=== PATIENT | male | born 1995 | race African-American/Black ===

== ENCOUNTER 2019-09-02 14:59 | Emergency (ER) | payer MEDICAID ==
[~2019-09-02] VITALS: Ht 175.3 cm; Wt 99.8 kg
[~2019-09-02 14:59] MED LIST: CIPRO PO
[2019-09-02 15:02] VITALS: BP 141/86
--- NOTE | 2019-09-02 15:06 | NUR ---
WAIT AT LOBBY
[2019-09-02 15:10] VITALS: BP 156/144
--- NOTE | 2019-09-02 15:30 | NUR ---
24 Y/O MALE PRESENT WITH LEFT ANKLE PAIN S/P FALL LAST NIGHT. PT DENIES LOC, DENIES HEAD INJURY, BELIEVES HE ROLLED HIS ANKLE. NO OBVIOUS DEFORMITY NOTED. PAIN 8/10 LEFT ANKLE. ROM + BILAT LOWER EXT. CMS+. AAOX4. DENIES SOB/CP. RESP EVEN AND UNLABORED. LUNG SOUNDS CLEAR IN BILAT LOBES. PT CURRENTLY FEELS THE NEED TO AMBULATE WITH CANE DUE TO PAIN NO PMH NKA
[2019-09-02] MEDS ORDERED: IBUPROFEN 600 MG TAB PO ONE (16:55)
[2019-09-02 17:35] VITALS: BP 120/78
== END 2019-09-02 17:35 | disposition home or self-care (01) ==
LOC: MED 14:59
DX: S93.402A Sprain of unspecified ligament of left ankle, initial encounter (principal); Z79.899 Other long term (current) drug therapy; X58.XXXA Exposure to other specified factors, initial encounter; Y93.89 Activity, other specified; Y92.89 Other specified places as the place of occurrence of the external cause; Y99.8 Other external cause status
CPT/HCPCS: 29515; 73610; 99283

== ENCOUNTER 2023-04-05 23:55 | Emergency (ER) | payer MEDICAID ==
[~2023-04-05] VITALS: Ht 175.3 cm; Wt 113.4 kg
[2023-04-06 00:48] VITALS: BP 142/94; PULSE 94; RESP 20; TEMP 98.1; O2SAT 99
[2023-04-06 01:34] LABS: FLU A ANTIGEN negative (NEGATIVE); FLU B ANTIGEN NEGATIVE (NEGATIVE)
== END 2023-04-06 01:30 | disposition left against medical advice (07) ==
LOC: MED 23:55
DX: R51.9 Headache, unspecified (principal); R42 Dizziness and giddiness; R68.83 Chills (without fever); Z20.822 Contact with and (suspected) exposure to COVID-19; Z53.21 Procedure and treatment not carried out due to patient leaving prior to being seen by health care provider
CPT/HCPCS: 99281

== ENCOUNTER 2023-09-15 23:48 | Emergency (ER) | payer MEDICAID ==
[~2023-09-15] VITALS: Ht 167.6 cm; Wt 114.8 kg
[2023-09-16 00:19] VITALS: BP 127/76; PULSE 93; RESP 18; TEMP 98.5; O2SAT 98
[2023-09-16] MEDS: HYDROcodone/APAP 5/325 MG 1 TAB TAB PO ONE (03:47)
[2023-09-16] MEDS ORDERED: ACET-8905 PO (04:10)
[2023-09-16 04:17] VITALS: BP 127/76; PULSE 93; RESP 18; TEMP 98.5; O2SAT 98
== END 2023-09-16 04:17 | disposition home or self-care (01) ==
LOC: MED 23:48
DX: S62.396A Other fracture of fifth metacarpal bone, right hand, initial encounter for closed fracture (principal); Z79.899 Other long term (current) drug therapy; Z88.6 Allergy status to analgesic agent; W22.8XXA Striking against or struck by other objects, initial encounter; Y92.89 Other specified places as the place of occurrence of the external cause; Y93.89 Activity, other specified; Y99.8 Other external cause status
CPT/HCPCS: 73130; 99283